=== PATIENT | male | born 1990 | race Caucasian/White ===

== ENCOUNTER 2018-03-31 18:42 | Inpatient (IN) | payer BC, OTHER ==
[~2018-03-31] VITALS: Ht 167.6 cm; Wt 63.5 kg
[2018-03-31] MEDS ORDERED: MAGNESIUM HYDROXIDE 30 ML LIQUID UDC PO PRN (22:30)
[2018-03-31] MEDS ORDERED: ACETAMINOPHEN 325 MG TABLET PO PRN (22:30)
[2018-03-31] MEDS ORDERED: MAG HYDROX/AL HYDROX/SIMETH 30 ML LIQUID UDC PO PRN (22:30)
[2018-03-31] MEDS ORDERED: LOPERAMIDE HCL 2 MG CAPSULE PO PRN ×2 (22:30)
[2018-03-31] MEDS ORDERED: ONDANSETRON ODT 4 MG TAB.RAPDIS SL PRN (22:30)
[2018-03-31] MEDS ORDERED: BUPRENORPHINE HCL 2 MG TAB.SUBL SL PRN (22:30)
[2018-03-31] MEDS ORDERED: diphenhydrAMINE 50 MG CAPSULE PO PRN (22:30)
[2018-03-31] MEDS ORDERED: IBUPROFEN 600 MG TABLET PO PRN (22:30)
[2018-03-31 22:47] LABS: *AMPHETAMINE, URINE POSITIVE (NEGATIVE); *BARBITURATE, URINE NEGATIVE (NEGATIVE); *CANNABINOID, URINE NEGATIVE (NEGATIVE); *COCCAINE, URINE NEGATIVE (NEGATIVE); *OPIATE, URINE POSITIVE (NEGATIVE); *PHENCYCLIDINE SCREEN,URINE NEGATIVE (NEGATIVE)
[2018-04-01] VITALS: BP 112/65
[2018-04-01 08:30] VITALS: BP 114/69
[2018-04-01] MEDS: MULTIVITAMINS,THERAPEUTIC TABLET PO SCH (09:00)
[2018-04-01] MEDS ORDERED: TUBERCULIN,PURIF.PROT.DERIV. 5 TU/0.1 ML TEST ID ONE (09:00)
[2018-04-01] MEDS ORDERED: BUPRENORPHINE HCL 2 MG TAB.SUBL SL PRN ×2 (09:30→18:00)
[2018-04-01 10:50] LABS: BASOPHILS % (AUTO) 0.5 % (0.0-2.0); EOSINOPHILS # (AUTO) 0.2 K/uL (0.0-0.7); EOSINOPHILS % (AUTO) 2.5 % (0.0-7.0); HEMATOCRIT 39.5 % (36.7-47.1); HEMOGLOBIN 13.5 g/dL (12.5-16.3); LYMPHOCYTES % (AUTO) 12.7 % (20.5-51.5); MEAN CORPUSCULAR HEMOGLOBIN 28.6 uug (23.8-33.4); MEAN CORPUSCULAR HGB CONC 34 g/dL (32.5-36.3); MEAN CORPUSCULAR VOLUME 83.6 fL (73.0-96.2); MONOCYTES # (AUTO) 0.4 K/uL (2.0-10.0); MONOCYTES % (AUTO) 5.6 % (0.0-11.0); NEUTROPHILS # (AUTO) 6.2 K/uL (1.8-8.9); NEUTROPHILS % (AUTO) 78.7 % (38.5-71.5); PLATELET COUNT (AUTO) 298 K/uL (152-348); RED BLOOD CELL COUNT(AUTO) 4.72 MIL/uL (4.06-5.63); WHITE BLOOD COUNT (AUTO) 7.8 K/uL (3.6-10.2)
[2018-04-01 10:57] LABS: ETHANOL < 3 MG/DL (0-0)
[2018-04-01 11:01] LABS: ALANINE AMINOTRANSFERASE 64 U/L (16-63); ALKALINE PHOSPHATASE 160 U/L (50-136); ASPARTATE AMINOTRANSFERASE 29 U/L (15-37); BILIRUBIN,TOTAL 0.2 mg/dL (0.2-1.0); CARBON DIOXIDE 22 mmol/L (21-32); CHLORIDE 103 mmol/L (98-107); CREATININE 0.9 mg/dL (0.6-1.3); GLUCOSE 187 mg/dL (74-106); MAGNESIUM 1.8 mg/dL (1.8-2.4); POTASSIUM 4.1 mmol/L (3.5-5.1); TOTAL PROTEIN, SERUM 7.2 g/dL (6.4-8.2); UREA NITROGEN, BLOOD 12 mg/dL (7-18)
[2018-04-01 12:00] VITALS: BP 100/53
[2018-04-01] MEDS: DICYCLOMINE HCL 20 MG TABLET PO PRN (15:22)
[2018-04-01] MEDS: METHOCARBAMOL 750 MG TABLET PO PRN (15:22)
[2018-04-01] MEDS: LORAZEPAM 1 MG TABLET PO PRN ×2 (15:23→21:24)
[2018-04-01 16:30] VITALS: BP 108/71
[2018-04-01 20:00] VITALS: BP 103/52
[2018-04-02 08:00] VITALS: BP 112/65
[2018-04-02 08:06] LABS: HEPATITIS B SURFACE AG Negative (Negative)
[2018-04-02] MEDS: MULTIVITAMINS,THERAPEUTIC TABLET PO SCH (10:27)
[2018-04-02 12:30] VITALS: BP 112/65
[2018-04-02] MEDS: ONDANSETRON 4 MG/2 ML VIAL IM PRN (15:40)
[2018-04-02 16:25] VITALS: BP 109/73
[2018-04-02] MEDS: DICYCLOMINE HCL 20 MG TABLET PO PRN (19:52)
[2018-04-02 20:12] VITALS: BP 100/55
[2018-04-03 08:00] VITALS: BP 129/80
[2018-04-03] MEDS: METHOCARBAMOL 750 MG TABLET PO PRN (08:18)
[2018-04-03] MEDS: ONDANSETRON 4 MG/2 ML VIAL IM PRN (08:18)
[2018-04-03] MEDS: CLONIDINE HCL 0.1 MG TABLET PO PRN ×2 (08:18→15:36)
[2018-04-03] MEDS: MULTIVITAMINS,THERAPEUTIC TABLET PO SCH (08:18)
[2018-04-03 12:00] VITALS: BP 118/67
[2018-04-03] MEDS ORDERED: IBUP-1955 PO (14:43)
[2018-04-03] MEDS ORDERED: DIPH50CA37 PO (14:43)
[2018-04-03] MEDS ORDERED: METH-406 PO (14:43)
[2018-04-03] MEDS ORDERED: CLON0.1T14 PO (14:43)
[2018-04-03 16:00] VITALS: BP 97/61
[2018-04-03 20:14] VITALS: BP 104/53
[2018-04-04 08:00] VITALS: BP 107/68
[2018-04-04 08:30] VITALS: BP 103/62
[2018-04-04 08:34] VITALS: BP 118/62
[2018-04-04] MEDS: MULTIVITAMINS,THERAPEUTIC TABLET PO SCH (08:34)
[2018-04-04] MEDS: CLONIDINE HCL 0.1 MG TABLET PO PRN (08:34)
[2018-04-04] MEDS: METHOCARBAMOL 750 MG TABLET PO PRN (08:34)
== END 2018-04-04 09:25 | DRG 895 ==
LOC: SRC 20:17
PROVIDERS: ADMIT Family Medicine Addiction Medicine; ATTEND Family Medicine Addiction Medicine
PROC: HZ2ZZZZ Detoxification Services for Substance Abuse Treatment (ICD-10-PCS; principal; 2018-03-31)
PROC: HZ31ZZZ Individual Counseling for Substance Abuse Treatment, Behavioral (ICD-10-PCS; 2018-04-02)
PROC: HZ41ZZZ Group Counseling for Substance Abuse Treatment, Behavioral (ICD-10-PCS; 2018-04-03)
DX: F11.23 Opioid dependence with withdrawal (principal); Z81.1 Family history of alcohol abuse and dependence; Z81.3 Family history of other psychoactive substance abuse and dependence; F41.1 Generalized anxiety disorder; F32.9 Major depressive disorder, single episode, unspecified; B19.20 Unspecified viral hepatitis C without hepatic coma; F17.210 Nicotine dependence, cigarettes, uncomplicated; R73.9 Hyperglycemia, unspecified
CPT/HCPCS: 36415; 70030-TC; 80307; 80324; 80361; 83735; 84443; 85025; 86592; 86705; 86803; 87340; 87806; G0480; J2405; Q0162; Q0163